=== PATIENT | male | born 1955 | race Caucasian/White ===

== ENCOUNTER 2023-03-04 08:16 | Outpatient (CLI) | payer MEDICARE, OTHER | END 2023-03-04 08:17 | disposition home or self-care (01) | LOC: CSHMRI 08:16 | PROVIDERS: ATTEND Specialist | DX: M51.16 Intervertebral disc disorders with radiculopathy, lumbar region (principal); M48.061 Spinal stenosis, lumbar region without neurogenic claudication | CPT/HCPCS: 72148 ==